=== PATIENT | male | born 1965 | race Two or more races ===

== ENCOUNTER 2016-08-30 01:10 | Emergency (ER) | payer BC, OTHER ==
[~2016-08-30] VITALS: Ht 175.3 cm; Wt 68.0 kg
--- NOTE | 2016-08-30 01:10 | NUR ---
To bed 2 [facility] paramedics c/o head injury with multiple facial abrasion, forehead laceration, occipital laceration. pt amneseic to the event. pt admits to drinking 2 beers and a shot of whiskey and marijuana. pt aaox3 , no acute distress noted, resp even and unlabored. skin pale, cool, nondiaphoretic. lung sounds clear bilaterally. pupils perrl, pt able to move all extremities well with bilateral equal informatica mdm developer. place pt on cardiac monitoring, continuous pox. er md at bedside to eval pt with orders received. will carry out orders.
[2016-08-30] MEDS ORDERED: IV NS 0.9% 1,000 ML ONE (01:18)
[2016-08-30] MEDS ORDERED: ONDANSETRON HCL/PF 4 MG/2 ML VIAL ONE ×2 (01:18→04:35)
[2016-08-30] MEDS ORDERED: IV SET PRIMARY 1 EA INFUS.SET MC ONE ×3 (01:18→04:14)
--- NOTE | 2016-08-30 01:20 | NUR ---
started sl 18g to [facility], blood drawn and sent to lab.
--- NOTE | 2016-08-30 01:29 | NUR ---
pt medicated by rn per er md order.
[2016-08-30] MEDS ORDERED: IV NS 0.9% 1,000 ML BAG IV ONE (01:30)
[2016-08-30] MEDS ORDERED: ONDANSETRON HCL/PF 4 MG/2 ML VIAL IVP ONE (01:30)
[2016-08-30 01:35] LABS: BASOPHILS # (AUTO) 0.1 /CMM (0.0-0.2); BASOPHILS % (AUTO) 0.6 % (0.0-2.0); EOSINOPHILS # (AUTO) 0.2 /CMM (0.0-0.7); EOSINOPHILS % (AUTO) 1.3 % (0.0-6.0); HEMATOCRIT 42 % (39-51); HEMOGLOBIN 14.4 g/dL (13.5-17.5); LYMPHOCYTES # (AUTO) 4.1 /CMM (0.8-4.8); MEAN CORPUSCULAR HEMOGLOBIN 33 PG (26.0-33.0); MEAN CORPUSCULAR HGB CONC 34 g/dl (31.0-36.0); MEAN CORPUSCULAR VOLUME 96 fL (80-96); MONOCYTES # (AUTO) 0.8 /CMM (0.1-1.30); MONOCYTES % (AUTO) 6.2 % (2.0-12.0); NEUTROPHILS # (AUTO) 7.4 /CMM (1.8-8.9); NEUTROPHILS % (AUTO) 58.9 % (43.0-81.0); PLATELET COUNT (AUTO) 396 /CMM (150-450); RDW COEFFICIENT OF VARIATION 12.8 (11.5-15.0); RED BLOOD CELL COUNT(AUTO) 4.39 MIL/uL (4.5-6.0); WHITE BLOOD COUNT (AUTO) 12.6 K/uL (4.3-11.0)
--- NOTE | 2016-08-30 01:35 | NUR ---
radiology called for ct head, ct facial, ct cervical spine.
--- NOTE | 2016-08-30 01:38 | NUR ---
pt transported to radiology for ct head, ct facial, and ct cervical spine.
[2016-08-30 01:43] LABS: CALCIUM, SERUM 9.3 mg/dL (8.5-10.1); CARBON DIOXIDE 27 mmol/L (21-32); CHLORIDE 103 mmol/L (98-107); CREATININE 1.2 mg/dL (0.6-1.3); GFR 64 mL/min (>60); GLUCOSE 178 mg/dL (74-106); POTASSIUM 3.1 mmol/L (3.5-5.1); SODIUM SERUM 142 mmol/L (136-145); UREA NITROGEN, BLOOD 21 mg/dL (7-18)
[2016-08-30 01:49] LABS: ALANINE AMINOTRANSFERASE 56 U/L (12-78); ALBUMIN 3.8 g/dL (3.4-5.0); ALKALINE PHOSPHATASE 72 U/L (46-116); ASPARTATE AMINOTRANSFERASE 43 U/L (15-37); BILIRUBIN,DIRECT 0.1 mg/dL (0.0-0.2); BILIRUBIN,TOTAL 0.3 mg/dL (0.2-1.0); TOTAL PROTEIN, SERUM 7.1 g/dL (6.4-8.2)
[2016-08-30 01:51] LABS: TROPONIN I < 0.017 ng/mL (0.00-0.056)
[2016-08-30 01:55] LABS: INR 0.99 (0.87-1.13); PROTHROMBIN TIME 10.7 SECS (9.5-12.7)
--- NOTE | 2016-08-30 01:57 | NUR ---
pt back from radiology. pending ct results.
--- NOTE | 2016-08-30 01:58 | NUR ---
hard cervical collar placed per er md order.
[2016-08-30] MEDS ORDERED: TDAP [DIPH/PERTUSSIS/TET] 0.5 ML VIAL IM ONE ×2 (02:59→03:00)
--- NOTE | 2016-08-30 03:41 | NUR ---
facesheet and ct results faxed to [facility] as requested to .
--- NOTE | 2016-08-30 03:50 | NUR ---
pt accepted at [facility], pt will be going to ER, accepting Md. Nickerson. phone number for report ([phone]. will call for transport.
--- NOTE | 2016-08-30 03:54 | NUR ---
transport called ([facility]) eta 30min.
--- NOTE | 2016-08-30 03:54 | NUR ---
er md at bedside for forehead and occipital scalp laceration.
--- NOTE | 2016-08-30 03:58 | NUR ---
report called to [facility] Janie Grimes, awaiting transport.
--- NOTE | 2016-08-30 04:01 | NUR ---
laceration repair done. pt tolerated procedure well.
[2016-08-30] MEDS ORDERED: IV D5W 100 ML IV ONE ×2 (04:12→04:14)
[2016-08-30] MEDS ORDERED: CEFAZOLIN 2 GM ONE (04:12)
[2016-08-30 04:23] VITALS: BP 142/87
[2016-08-30] MEDS ORDERED: CEFAZOLIN 2 GM in IV D5W 100 ML IV ONE (04:30)
--- NOTE | 2016-08-30 04:32 | NUR ---
als transport at bedside report given to histology supervisor.
[2016-08-30] MEDS ORDERED: ONDANSETRON HCL/PF 4 MG/2 ML VIAL IV ONE (05:00)
== END 2016-08-30 04:58 ==
LOC: ER 01:12
DX: S06.2X0A Diffuse traumatic brain injury without loss of consciousness, initial encounter (principal); S02.19XA Other fracture of base of skull, initial encounter for closed fracture; S02.2XXA Fracture of nasal bones, initial encounter for closed fracture; S01.81XA Laceration without foreign body of other part of head, initial encounter; S01.01XA Laceration without foreign body of scalp, initial encounter; G93.89 Other specified disorders of brain; F41.9 Anxiety disorder, unspecified; W19.XXXA Unspecified fall, initial encounter; Y93.89 Activity, other specified; Y92.89 Other specified places as the place of occurrence of the external cause; Y99.8 Other external cause status; R73.09 Other abnormal glucose
CPT/HCPCS: 12001; 12011; 36415; 70450; 70486; 71010; 72125; 72170; 80048; 80076; 82962; 84484; 85025; 85730; 86850; 90471; 90715; 93005; 96360; 96365; 96375; 96376; 99291; A4606; A6402; G0480; J0690; J2405 ×2; J7030; J7060 ×2; L0172; Z7610